=== PATIENT | male | born 2000 | race Caucasian/White ===

== ENCOUNTER 2025-01-28 06:26 | Outpatient (REF) | payer OTHER, SELFPAY ==
--- OUTSIDE RECORDS SUMMARY | 2024-11-05 04:00 | XMS_ITS ---
Author Organization [facility] Address [address] [place] [address] Care Team Providers Care Cycle Touring Guide Name Role Phone UNLISTED COMMUNITY PRESCRIBER, [facility] Primary Car e Provider Unavailable Ismael Cohen Unavailable [phone] REASON FOR VISIT Constipation and sucraid kit Encounters Encounter Location Date Provider Diagnosis [address] [place] [address] 11/05/2024 Ismael Cohen Plan Of Treatment No Information Progress Notes * DESIREE TANFDOB:2000 (24 yo M)Acc No.[id number]:11/05/2024 Patient: LANEY MALDONADO Provider: Jaymie Cohen MD :2000 A ge:24 Y S ex:Male Date:11/05/2024 Address:[id number] Pcp:[facility] UNLISTED COMMUNITY PRESCRIBER Subjective: * Chief Complaints: * 1 . Constipation and sucraid kit. * HPI: I ntroduction: Mr. Tan is a 33 yo M with PMH suspected IBS-C p resenting in follow-up GI clinic today in follow-up with persistent abdominal bloating/distention. At first visit with us 11/07/23 he reported chronic abdominal bloating and visible abdominal distention over the last 6 months or so (started May 2023 after weight cutting for an arm wrestling tournament). Reported constant level of bloating, after eating/drinking (even water). Often worse when waking up. Reported some excess belching as well. Bloating is dominant symptom. N o obvious food triggers, (unhealthy foods may make worse). After this visit- arranged for basic GI testing as below, ultimately trialed strict lactose avoidance/low FODMAP diet with just marginal improvement. Rifaximin x2 weeks as well as Miralax 17 once a day before breakfast given the below KUB showing some mild constipation. He subsequently did bowel purge with Miralax Feb 2024, and a subsequent 2nd rifaximin 2 week course a few months ago with transient improvement but overall the bloating has persisted. He was then set up for colonoscopy Jul 2024 with results as below. Since last visit with us his only ongoing symptom is persistent daily bloating, with excess flatus. Has intermittent loose stools which is a change from his prior normal BM baseline. His GI ROS is otherwise negative similar to prior visits, no diarrhea or blood in the stool, thin stools or GERD symptoms/dysphagia. 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 He is unsure if this triggers his bloating in any way. Pertinent recent GI testin07/2024 Colonoscopy- moderate residual stool, TI slightly congested no inflammation (bx- normal), colon otherwise normal (R/L colon bx normal) 11/30/23 KUB: stool is seen throughout the colon consistent with mild constipation Conclusion: Mild constipation as described above. 11/17/23 SIBO breath test: negative (hydrogen level 0->16 ppm by end) 11/10/23 labs- celiac serologies, stool calprotectin/CRP all normal 09/07/23- Tbili 1.1/Dbili 0.4, rest of LFTs nromal 08/23/23- normal CBC, Tbili 1.9/Dbili 0.6 rest of LFTs normal, lipase 14, stool H pylori ag negative (unsure if he was on pepcid/PPI at this time). * Medical History: Objective: * Vitals: Assessment: Plan: * Treatment: * * Electronic signature of MD Carney ph D on 01/28/2025 at 06:49 AM EDT Sign off status: Pending * Provider: Jaymie Cohen MD Date: 0 11/05/2024 Generated for Jonathon gonzalez/Wse/Denisitting on: 0 01/28/2025 06:49 AM EDT
--- OUTSIDE RECORDS SUMMARY | 2025-01-28 06:49 | XMS_ITS | Clinical Summary ---
Author Organization [facility] Address [address] [place] [id number] Phone Care Team Providers Care Risk Control Analyst Name Role Phone Balaji Valdivia DO Primary Care Provider [phone] Allergies No known active allergies Medications azelastine (ASTELIN) 137 mcg (0.1 %) nasal spray 2 sprays by Nasal route 2 (two) times a day. 30 mL 12 5 12/26/19 26 Active fluticasone propionate (FLONASE) 50 mcg/actuation nasal spray 2 sprays by Nasal route daily. 15.8 mL 12 5 12/26/19 26 Active sodium chloride (OCEAN) 0.65 % nasal spray 2 sprays by Nasal route 2 (two) times a day. 15 mL 12 5 12/26/19 26 Active cetirizine (ZYRTEC) 10 mg capsule Take by mouth daily. 01/21/20 25 Discontinu ed(No longer taking) LINZESS 145 mcg Cap Take 145 mcg by mouth. 5 01/21/20 25 Discontinu ed(No longer taking) Active Problems Problem Noted Date Diagnosed Date Chronic pain of right knee 01/20/2025 Assessment & Plan (01/20/2025 5:26 PM EDT): Boubacar presents as a new patient to [facility]. I will review his previous medical records in detail when they are scanned in. He presents today for ongoing right knee pain along with a prominence of his right tibial tuberosity. It is likely secondary to the fact that he has been running more and his bone is adjusting to this increase cardio workout. This looks overall reassuring but he also notes that he had x-rays done 2 days ago and I would like to see these x-rays. They will be uploaded through the media tab and I will review them once they are scanned in. I will see him back in a month for his physical. I informed him to call if his right knee pain or the prominence of the tibial tuberosity is getting worse/bigger. He understands and agrees with this plan of action. Left wrist pain 01/20/2025 Assessment & Plan (01/20/2025 5:26 PM EDT): Boubacar has ongoing left wrist pain and will be going for surgery tomorrow. I will review the notes when they are faxed over. Screening for human immunodeficiency virus 01/20 Assessment & Plan (01/20/2025 5:26 PM EDT): Boubacar is due for blood work-he will get this done and I will update him with the results. Need for hepatitis C screening test 01/20/2025 Assessment & Plan (01/20/2025 5:26 PM EDT): Boubacar is due for blood work-he will get this done and I will update him with the results. 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 [employer], Balaji Stein, Chronic pain of right knee (Primary Dx); Left wrist pain; Screening for human immunodeficiency virus; Need for hepatitis C screening test 01/15/2025 12:05 AM EDT - 01/15/2025 11:59 PM EDT Hospital Encounter [facility] [address] [place] [address] Unknown, Unknown, MD Discharge Disposition: Home or Self Care 01/15/2025 - 01/15/2025 12:04 AM EDT Hospital Encounter [facility] [address] [place] [address] Unknown, Unknown, MD Discharge Disposition: Home or Self Care 01/14/2025 1:20 PM EDT Office Visit [facility] at [address] [place] [address] Nohemy Timmons CNP Lower leg mass, right (Primary Dx) 01/14/2025 Telephone [facility] [address] [place] [address] Dangelo Camacho PA-C Appointment; Establish Care; Knee Problem 12/25/2024 10:00 AM EDT Office Visit [facility] Otolaryngology General LW [address] [place] [address] Sohail Baca MD Nasal congestion (Primary Dx); Deviated nasal septum from Last 3 Months Immunizations Immunization Administration Dates Next Due Meningococcal MCV4P 10/01/2020 Varicella 10/01/2020 Family History Medical History Relation Comments Diabetes Maternal Grandmother Colon polyps Mother Relation Status Comments Father Alive Maternal Grandmother Mother Alive Social History Tobacco Use Types Packs/Day Years Used Date Smoking Tobacco: Never Smokeless Tobacco: Never Alcohol Use Standard Drinks/Week Comments Not Currently 0 (1 standard drink = 0.6 oz pur e alcohol) 1-2 times a year. Education Answer Date Recorded Are you interested in more education? Not on hamlet e 11/04/2022 Are you concerned about learning? Not on file 11/04/2022 No 11/04/2022 No 11/04/2022 Digital Access Answer Date Recorded No 12/03/2022 No 12/03/2022 Reliable internet access at home? Not on file 12/03/2022 Device with a working camera? Not on file Sex and Gender Information Value Date Recorded Sex Assigned at Male 02/15/2020 1:44 AM EDT Legal Sex Male 1:37 AM EDT Gender Identity Male 02/15/2020 1:44 AM EDT Sexual Orientation Straight 02/15/2020 1: 44 AM EDT Last Filed Vital Signs Vital Sign Reading Time Taken Comments Blood Pressure 110/70 01/20/2025 4:54 PM EDT Pulse 60 01/20/2025 4:54 PM EDT Temperature 36.2 C (97.2 F) 01/20/2025 4:54 PM EDT Respiratory Rate 20 01/14/2025 1:43 PM EDT Oxygen Saturation 99% 01/20/2025 4:54 PM EDT Inhaled Oxygen Concentration - - Weight 84.1 kg (185 lb 6.4 oz) 01/20/2025 4:54 P M EDT Height 180.3 cm (5' 10.98 ) 01/20/2025 4:54 PM E DT Body Mass Index 25.87 01/20/2025 4:54 PM EDT Plan of Treatment Upcoming Encounters Date Type Department Care Team (Late st Contact Info) Description 02/04/2025 1:00 PM EDT Office Visit [facility] [address]th [place] [address] Wan Taylor MD, [place] [address] [place] [address] [email or web address] 02/07/2025 9:50 AM EDT Office Visit [facility] Otolaryngology General LW [address] [place] [address] Sohail Baca MD [address] [place] [address] [email or web address] 03/07/2025 10:30 AM EDT Office Visit [facility] [address] [place] [address] Balaji Valdivia, [address], [address] [place] [address] [email or web address] Health Maintenance Due Date Last Done Comments Adult Td,Tdap Booster 2001 HPV VACCINES (1 - Male 3-dos e series) 2016 MENINGOCOCCAL VACCINES (B) ( 1 of 2 - Standard) 2017 HEPATITIS C SCREENING 2019 HIV ONE-TIME SCREENING (18-6 5 YEARS) 2019 COVID-19 VACCINE (4 - 2023-2 5 season) 2024 08/02/2021, 12/02/2020, 11/02/2020 DEPRESSION SCREENING 01/16/2026 01/16/2025 SMOKING Hx and SMOKELESS TOBACCO SCREENING 01/20/2026 01/20/2025 MENINGOCOCCAL VACCINES (ACWY) Aged Out 10/01/2020 No longer eligible based on patient's age to complete this topic HEPATITIS A VACCINES Aged Out No long er eligible based on patient's age to complete this topic HIB VACCINES Aged Out No longer eligi ble based on patient's age to complete this topic PNEUMOCOCCAL VACCINES (0-49 years) Aged Out No longer eligible b ased on patient's age to complete this topic Medical Devices Not on file Procedures Procedure Name Priority Date/Time Associated Diagnosis Comments XR LOWER EXTREMITY OUTSIDE (NO INTERPRETATION) Routine 01/15/2025 12:05 AM EDT XR LOWER EXTREMITY OUTSIDE (NO INTERPRETATION) Routine 01/15/2025 12:00 AM EDT from Last 3 Months Results * XR Lower Extremity Outside (No Interpretation) (01/15/2025 12:05 AM EDT) Narrative SYSTEMGENERATED, DOCUMENTATION - 01/22/2025 7:42 AM EDT This study is for PACS storage only and not for interpretation. us Unknown Unknown MD [facility] OUTSIDE IMAGING W/OUT INT ERPRETATION Final Result * XR Lower Extremity Outside (No Interpretation) (01/15/2025 12:00 AM EDT) Narrative SYSTEMGENERATED, DOCUMENTATION - 01/22/2025 7:41 AM EDT This study is for PACS storage only and not for interpretation. us Unknown Unknown MD [facility] OUTSIDE IMAGING W/OUT INT ERPRETATION Final Result from Last 3 Months Insurance [employer] TOTAL CHOICE INDEMNITY [employer] TOTAL CHOICE INDEMNITY [employer] [facility] TOTAL CHOICE INDEMNITY Care Teams Risk Control Analyst Relationship Specialty Start Date End Date Balaji Valdivia DO [address] [place] [address], [address] [place] [address] [email or web address] PCP - General Family Medicine 01/20/25 Additional Source Comments The information contained in this document represents components of the legal health record. It is not the complete legal health record.[facility]
== END 2025-01-28 06:27 | disposition home or self-care (01) ==
LOC: HO.UMASIMG 06:26
PROVIDERS: Visit Provider Physician Assistant Medical
DX: Z13.89 Encounter for screening for other disorder (principal)